=== PATIENT | male | born 1995 | race Caucasian/White ===

== ENCOUNTER 2019-01-25 06:48 | Emergency (ER) | payer OTHER ==
[~2019-01-25] VITALS: Ht 185.4 cm; Wt 84.1 kg
[2019-01-25 06:54] VITALS: BP 115/66
== END 2019-01-25 07:43 | disposition home or self-care (01) ==
LOC: ER 06:48
DX: S51.812D Laceration without foreign body of left forearm, subsequent encounter (principal); W26.8XXD Contact with other sharp object(s), not elsewhere classified, subsequent encounter
CPT/HCPCS: 99281

== ENCOUNTER 2025-09-06 16:31 | Emergency (ER) | payer BC, OTHER ==
[~2025-09-06] VITALS: Ht 185.4 cm; Wt 103.2 kg
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
[2025-09-06 17:29] VITALS: BP 152/93; PULSE 114; RESP 18; TEMP 97.5; O2SAT 97
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
[2025-09-06] MEDS ORDERED: IBUP-864 PO (17:58)
== END 2025-09-06 18:11 | disposition home or self-care (01) ==
LOC: ER 16:32
DX: S76.911A Strain of unspecified muscles, fascia and tendons at thigh level, right thigh, initial encounter (principal); X58.XXXA Exposure to other specified factors, initial encounter; Y93.89 Activity, other specified; Y92.89 Other specified places as the place of occurrence of the external cause; Y99.8 Other external cause status
CPT/HCPCS: 73502; 73552; 73560; 99284